=== PATIENT | female | born 1990 | race American Indian/Alaskan Native ===

== ENCOUNTER 2017-10-18 23:35 | Outpatient (CLI) | payer MEDICAID ==
[2017-10-19 01:58] VITALS: BP 117/71
== END 2017-10-19 00:35 | disposition home or self-care (01) ==
LOC: TRG 23:35
PROVIDERS: ATTEND Obstetrics & Gynecology
DX: O47.1 False labor at or after 37 completed weeks of gestation (principal); Z3A.37 37 weeks gestation of pregnancy
CPT/HCPCS: 59025

== ENCOUNTER 2017-11-11 12:40 | Outpatient (CLI) | payer MEDICAID ==
[2017-11-11 13:35] VITALS: BP 114/65
--- NOTE | 2017-11-11 14:36 | Ultrasound Report ---
ULTRASOUND BIOPHYSICAL PROFILE: History: Nonreactive stress test Technique: Transabdominal ultrasound with Doppler interrogation. 2 - breathing movements 2 - movements 2 - posture and tone 2 - Qualitative amniotic fluid volume 8 - TOTAL SCORE OF POSSIBLE 8 Heart Rate (bpm) 137
--- NOTE | 2017-11-11 14:37 | Ultrasound Report ---
ULTRASOUND OB LIMITED History: Nonreactive stress test Technique: Transabdominal ultrasound with Doppler interrogation. Gestation: Single Position: Cephalic Amniotic Fluid: Normal GABBY = 20.1 cm Heart Rate: 137 BPM
== END 2017-11-11 14:30 | disposition home or self-care (01) ==
LOC: TRG 12:40
PROVIDERS: ATTEND Obstetrics & Gynecology
DX: O47.1 False labor at or after 37 completed weeks of gestation (principal); Z3A.40 40 weeks gestation of pregnancy
CPT/HCPCS: 59025; 76815; 76819